=== PATIENT | female | born 1965 ===

== ENCOUNTER 2023-02-16 06:00 | Outpatient (RCR) | payer OTHER, SELFPAY | END 2023-02-22 23:59 | disposition home or self-care (01) | LOC: WPT 06:00 | PROVIDERS: Visit Provider Orthopaedic Surgery | DX: Z47.1 Aftercare following joint replacement surgery (principal); Z96.651 Presence of right artificial knee joint | CPT/HCPCS: 97110; 97112; 97162; 97530 ==

== ENCOUNTER 2023-02-23 06:00 | Outpatient (RCR) | payer OTHER, SELFPAY | END 2023-03-25 23:59 | disposition home or self-care (01) | LOC: WPT 06:00 | PROVIDERS: Visit Provider Orthopaedic Surgery | DX: Z47.1 Aftercare following joint replacement surgery (principal); Z96.651 Presence of right artificial knee joint | CPT/HCPCS: 97110; 97112; 97140; 97530 ==

== ENCOUNTER 2023-03-26 06:00 | Outpatient (RCR) | payer OTHER, SELFPAY | END 2023-04-24 23:59 | disposition home or self-care (01) | LOC: WPT 06:00 | PROVIDERS: Visit Provider Orthopaedic Surgery | DX: Z47.1 Aftercare following joint replacement surgery (principal); Z96.651 Presence of right artificial knee joint | CPT/HCPCS: 97110; 97112; 97164; 97530 ==

== ENCOUNTER 2023-04-25 06:00 | Outpatient (RCR) | payer OTHER, SELFPAY | END 2023-05-25 23:59 | disposition home or self-care (01) | LOC: WPT 06:00 | PROVIDERS: Visit Provider Orthopaedic Surgery | DX: Z47.1 Aftercare following joint replacement surgery (principal); Z96.651 Presence of right artificial knee joint | CPT/HCPCS: 97110; 97112; 97530 ==